=== PATIENT | male | born 2000 | race Caucasian/White ===

== ENCOUNTER 2020-06-08 22:00 | Emergency (ER) | payer BC, OTHER ==
[~2020-06-08] VITALS: Ht 182.9 cm; Wt 70.3 kg
[2020-06-08 22:05] VITALS: BP_SYST 135
[2020-06-08] MEDS ORDERED: BACITRACIN 1 GM OINT TP ONE (22:32)
[2020-06-08] MEDS ORDERED: LIDOCAINE 1%, 20 ML MDV 20 ML ONE (22:32)
[2020-06-08] MEDS: BACITRACIN 1 GM OINT TP ONE (22:53)
[2020-06-08] MEDS: DIPH-TET-PERTUS Vaccine 0.5 ML VIAL (ADACEL) I.M. ONE (22:53)
[2020-06-08] MEDS: LIDOCAINE 1% 10 MG/ML, 20 ML MDV INJ ONE (22:53)
[2020-06-08] MEDS ORDERED: CEPH250C PO ×2 (23:03)
[2020-06-08] MEDS ORDERED: HYDR-3919 PO (23:03)
[2020-06-08] MEDS ORDERED: IBUP-1971 PO (23:04)
[2020-06-08] MEDS: cefTRIAXone 1 GM in LIDOCAINE 1%, 20 ML MDV 2.1 ML IM ONE (23:34)
[2020-06-09 00:41] VITALS: BP_SYST 129
== END 2020-06-09 00:41 | disposition home or self-care (01) ==
LOC: SED 22:00
DX: S62.630B Displaced fracture of distal phalanx of right index finger, initial encounter for open fracture (principal); Z79.899 Other long term (current) drug therapy; W18.39XA Other fall on same level, initial encounter; Y93.89 Activity, other specified; Y92.89 Other specified places as the place of occurrence of the external cause; Y99.8 Other external cause status
CPT/HCPCS: 12002; 70450; 73140; 76376; 90471; 90715; 96372; 99284; J0696; J2001

== ENCOUNTER 2020-06-10 21:10 | Observation (INO) | payer BC, SELFPAY ==
[~2020-06-10] VITALS: Ht 182.9 cm; Wt 69.4 kg
[~2020-06-10 21:10] MED LIST: CEPH250C PO; HYDR-3919 PO; IBUP-1971 PO
[2020-06-10 21:18] VITALS: BP_SYST 133
[2020-06-10] MEDS ORDERED: cefTRIAXone 1 GM in LIDOCAINE 1%, 20 ML MDV 2.1 ML IM ONE (21:45)
[2020-06-10 22:10] LABS: BASOPHILS % (AUTO) 0.3 % (0.0-2.0); EOSINOPHILS # (AUTO) 0.1 K/uL (0.0-0.4); EOSINOPHILS % (AUTO) 0.9 % (0.0-4.0); HEMOGLOBIN 14.2 g/dL (14.0-18.0); LYMPHOCYTES # (AUTO) 1.8 K/uL (1.0-5.5); LYMPHOCYTES % (AUTO) 18.8 % (20.5-51.5); MEAN CORPUSCULAR HEMOGLOBIN 30 pg (27-31); MEAN CORPUSCULAR HGB CONC 35 % (32-36); MEAN CORPUSCULAR VOLUME 88 fL (79.0-98.0); MONOCYTES # (AUTO) 0.9 K/uL (0.0-1.0); MONOCYTES % (AUTO) 10.2 % (1.7-9.3); NEUTROPHILS # (AUTO) 6.5 K/uL (1.8-7.7); NEUTROPHILS % (AUTO) 69.8 % (40.0-70.0); PLATELET COUNT (AUTO) 214 K/uL (130-430); RED BLOOD CELL COUNT(AUTO) 4.65 MIL/uL (4.2-6.2); RED CELL DISTRIBUTION WIDTH 13.1 % (9.0-15.0); WHITE BLOOD COUNT (AUTO) 9.3 K/uL (4.5-11.0)
[2020-06-10 22:26] LABS: ALBUMIN 4.2 g/dL (3.4-4.8); CALCIUM 8.8 mg/dL (8.4-11.0); CREATININE 0.82 mg/dL (0.55-1.30); POTASSIUM 3.5 mmol/L (3.5-5.1); TOTAL BILIRUBIN 0.6 mg/dL (0.0-1.0)
[2020-06-10 22:35] LABS: C-REACTIVE PROTEIN QUANT 1.9 mg/dL (0-0.5)
[2020-06-10 23:03] LABS: CKMB RELATIVE INDEX 0.3 (0.0-2.9); CREATINE KINASE MB 0.8 ng/mL (0-3.6)
[2020-06-10] MEDS ORDERED: ALBUTEROL SULFATE 0.083% 2.5 MG/3 ML VIAL.NEB INH PRN (23:30)
[2020-06-10] MEDS ORDERED: HYDROcodone/ACETAMIN 5-325 MG TAB (NORCO/ VICODIN) PO PRN (23:30)
[2020-06-11 00:16] VITALS: BP_SYST 138
[2020-06-11] MEDS: HYDROcodone/ACETAMIN 10-325 MG TAB PO PRN ×2 (02:36→08:31)
[2020-06-11 06:43] LABS: BASOPHILS % (AUTO) 0.3 % (0.0-2.0); EOSINOPHILS % (AUTO) 0.6 % (0.0-4.0); HEMATOCRIT 40.8 % (36-54); HEMOGLOBIN 13.9 g/dL (14.0-18.0); LYMPHOCYTES # (AUTO) 1.5 K/uL (1.0-5.5); LYMPHOCYTES % (AUTO) 18.4 % (20.5-51.5); MEAN CORPUSCULAR HEMOGLOBIN 30 pg (27-31); MEAN CORPUSCULAR HGB CONC 34 % (32-36); MEAN CORPUSCULAR VOLUME 89 fL (79.0-98.0); MONOCYTES # (AUTO) 1.2 K/uL (0.0-1.0); MONOCYTES % (AUTO) 14.2 % (1.7-9.3); NEUTROPHILS # (AUTO) 5.4 K/uL (1.8-7.7); NEUTROPHILS % (AUTO) 66.5 % (40.0-70.0); PLATELET COUNT (AUTO) 209 K/uL (130-430); RED CELL DISTRIBUTION WIDTH 13.2 % (9.0-15.0); WHITE BLOOD COUNT (AUTO) 8.2 K/uL (4.5-11.0)
[2020-06-11 07:25] LABS: CALCIUM 8.8 mg/dL (8.4-11.0); CREATININE 0.71 mg/dL (0.55-1.30); POTASSIUM 3.8 mmol/L (3.5-5.1); TOTAL BILIRUBIN 0.8 mg/dL (0.0-1.0)
[2020-06-11 08:32] VITALS: BP_SYST 130
[2020-06-11] MEDS ORDERED: cefTRIAXone 1 GM in D5W 50 ML IV SCH (09:00)
[2020-06-11] MEDS ORDERED: cefTRIAXone 1 GM VIAL IV SCH (09:00)
[2020-06-11 10:57] VITALS: BP_SYST 130
[2020-06-11] MEDS ORDERED: VANCOMYCIN HCL 1 GM/NS PREMIX 250 ML IV ONE (11:00)
[2020-06-11 12:03] VITALS: BP_SYST 118
[2020-06-11 16:15] VITALS: BP_SYST 130
[2020-06-11] MEDS ORDERED: AMOX-426 PO (16:37)
[2020-06-11 16:47] VITALS: BP_SYST 122
== END 2020-06-11 17:30 | disposition home or self-care (01) ==
LOC: SED 21:10 → SMU 23:19
PROVIDERS: ADMIT Internal Medicine Hospice and Palliative Medicine; ATTEND Internal Medicine Hospice and Palliative Medicine
DX: S61.210A Laceration without foreign body of right index finger without damage to nail, initial encounter (principal); Z20.822 Contact with and (suspected) exposure to COVID-19; L03.011 Cellulitis of right finger; R20.8 Other disturbances of skin sensation; Z79.899 Other long term (current) drug therapy; W19.XXXA Unspecified fall, initial encounter; Y93.89 Activity, other specified; Y92.89 Other specified places as the place of occurrence of the external cause
CPT/HCPCS: 36415 ×2; 73140; 80053 ×2; 82550; 82553; 83605; 85025 ×2; 86140; 87426; 96365; 96366; 96367; 96372; 99284; G0378 ×2; J0696 ×2; J2001; J3370; J7060

== ENCOUNTER 2020-07-17 23:20 | Emergency (ER) | payer BC, SELFPAY ==
[~2020-07-17] VITALS: Ht 182.9 cm; Wt 71.7 kg
[~2020-07-17 23:20] MED LIST changes: +AMOX-426 PO; -CEPH250C PO
[2020-07-17 23:25] VITALS: BP_SYST 132
--- NOTE | 2020-07-17 23:32 | NUR ---
Placed in room 5 . Placed on radiographer cardiac catheterization, blood pressure machine and pulse oximeter. To gown for exam. Side rails up. Report given to Octaviano ARROYO.
--- NOTE | 2020-07-17 23:33 | NUR ---
Came in ER ambulatory from home this 20 year old male, AAOX4, breathing spontaneously at room air, not in distress noted. With chief complaints of syncope 40mins ago, medically/surgically free, no known allergy. vital signs stable
--- NOTE | 2020-07-17 23:44 | NUR ---
Seen and examined by Dr. Hwang, MARITO Attending
--- NOTE | 2020-07-17 23:55 | NUR ---
# 20 gauge angiocath placed to right ac. Use of asceptic technique. Opsite placed over site. Blood return noted. Blood for lab drawn from site. Flushed with 10 cc of normal saline. No evidence of infiltration noted. Patient tolerated well.
--- NOTE | 2020-07-17 23:59 | NUR ---
To Ct scan department per wheelchair in stable condition accompanied by project control analyst
[2020-07-18] MEDS ORDERED: NACL 0.9% 1,000 ML IV ONE
--- NOTE | 2020-07-18 00:18 | NUR ---
Back to bed, chest xray and head ct scan done
[2020-07-18 00:19] LABS: BASOPHILS % (AUTO) 0.4 % (0.0-2.0); EOSINOPHILS # (AUTO) 0.2 K/uL (0.0-0.4); HEMATOCRIT 42.3 % (36-54); HEMOGLOBIN 14.7 g/dL (14.0-18.0); LYMPHOCYTES # (AUTO) 1.3 K/uL (1.0-5.5); LYMPHOCYTES % (AUTO) 16.1 % (20.5-51.5); MEAN CORPUSCULAR HEMOGLOBIN 31 pg (27-31); MEAN CORPUSCULAR HGB CONC 35 % (32-36); MEAN CORPUSCULAR VOLUME 89 fL (79.0-98.0); MONOCYTES # (AUTO) 0.9 K/uL (0.0-1.0); MONOCYTES % (AUTO) 11.7 % (1.7-9.3); NEUTROPHILS # (AUTO) 5.6 K/uL (1.8-7.7); NEUTROPHILS % (AUTO) 68.8 % (40.0-70.0); PLATELET COUNT (AUTO) 203 K/uL (130-430); RED BLOOD CELL COUNT(AUTO) 4.76 MIL/uL (4.2-6.2); RED CELL DISTRIBUTION WIDTH 13.1 % (9.0-15.0); WHITE BLOOD COUNT (AUTO) 8.1 K/uL (4.5-11.0)
--- NOTE | 2020-07-18 00:20 | NUR ---
Covid dawna test and urine sample sent to lab
[2020-07-18 00:26] LABS: ANION GAP 9 (5-15); CALCIUM 8.5 mg/dL (8.4-11.0); CHLORIDE 102 mmol/L (98-107); CREATININE 0.82 mg/dL (0.55-1.30); GLUCOSE 104 mg/dL (70-99); POTASSIUM 3.6 mmol/L (3.5-5.1); SODIUM SERUM 138 mmol/L (136-145); UREA NITROGEN, BLOOD 13 mg/dL (8-21)
[2020-07-18 00:30] LABS: INR 1.1 (0.80-1.20)
[2020-07-18 00:36] LABS: BILIRUBIN,URINE NEGATIVE (NEGATIVE); BLOOD, URINE NEGATIVE (NEGATIVE); CLARITY/URINE CLEAR (CLEAR); COLOR,URINE YELLOW (YELLOW); GLUCOSE,URINE NEGATIVE (NEGATIVE); KETONES,URINE TRACE (NEGATIVE); LEUKOCYTE ESTERASE ,URINE NEGATIVE (NEGATIVE); NITRITE, URINE NEGATIVE (NEGATIVE); PROTEIN URINE TRACE (NEGATIVE); UROBILINOGEN,URINE 0.2 (0.2-1.0)
[2020-07-18 00:38] LABS: GFR AFRICAN AMERICAN 154 mL/min (>90)
[2020-07-18 00:39] LABS: ALANINE AMINOTRANSFERASE 13 U/L (12-78); ALBUMIN 3.8 g/dL (3.4-4.8); ASPARTATE AMINOTRANSFERASE 22 U/L (10-37); TOTAL BILIRUBIN 0.4 mg/dL (0.0-1.0)
[2020-07-18 00:41] LABS: ALCOHOL, BLOOD < 3 mg/dL (<10)
[2020-07-18 00:56] LABS: BARBITURATE, URINE NEGATIVE (NEG <=200); BENZODIAZEPINE, URINE NEGATIVE (NEG <=150); CANNABINOID, URINE POSITIVE (NEG <=50); COCAINE, URINE NEGATIVE (NEG <=150); METHAMPHETAMINES SCREEN,URINE NEGATIVE (NEG <=500); OPIATE, URINE NEGATIVE (NEG <=100); PHENCYCLIDINE SCREEN,URINE NEGATIVE (NEG <=25); UR TRICYCLIC ANTIDEPRESSANTS NEGATIVE (NEG <=300); URINE AMPHETAMINE NEGATIVE (NEG <=500); URINE METHADONE NEGATIVE (NEG <=200); URINE OXYCODONE SCREEN NEGATIVE (NEG <=100); URINE PROPOXYPHENE SCREEN NEGATIVE (NEG <=300)
--- NOTE | 2020-07-18 01:54 | NUR ---
Repeat ECG done, sinus bradycardia and reviewed by Dr. Hwang
--- NOTE | 2020-07-18 02:25 | NUR ---
For discharge, still waiting for the discharge instruction, with technical problem with the printer.
[2020-07-18 02:57] VITALS: BP_SYST 120
--- NOTE | 2020-07-18 02:57 | NUR ---
Patient given written and verbal discharge instructions and verbalizes understanding. ER MD discussed with patient the results and treatment provided. Patient in stable condition. ID arm band removed. IV catheter removed intact and dressing applied, no active bleeding. Patient educated to follow up with PMD in the morning and to consult the Cardiology, Pain Scale 0/10. Opportunity for questions provided and answered. Medication side effect fact sheet provided.
== END 2020-07-18 02:57 | disposition home or self-care (01) ==
LOC: SED 23:20
DX: R55 Syncope and collapse (principal); E86.0 Dehydration; Z20.822 Contact with and (suspected) exposure to COVID-19; Z79.899 Other long term (current) drug therapy
CPT/HCPCS: 36415; 70450; 71045; 72125; 76376; 80053; 80307; 81003; 82550; 82962; 84484; 85025; 85610; 87426; 93005 ×2; 96360; 99285; G0482; J7030 ×2